=== PATIENT | male | born 2005 | race Caucasian/White ===

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

== ENCOUNTER 2024-12-11 14:00 | Emergency (ER) | payer OTHER, SELFPAY ==
--- NOTE | 2024-12-11 14:03 | ED_ITS ---
HPI - URI/Sore Throat General Chief Complaint: Upper Respiratory Infection Stated Complaint: Fever/Sinus Time Seen by Provider: 12/11/24 14:03 Source: patient Mode of arrival: ambulatory Limitations: no limitations History of Present Illness HPI Narrative: Patient is a 19-year-old male who presents with fever, sinus congestion and cough that started yesterday. Patient has not taken anything for symptoms. Reports high his fever of 102. Also reports fatigue and mild body aches. Reports problem manager had the flu. Denies any nausea, vomiting, diarrhea. Related Data Home Medications ?Medication ?Instructions ?Recorded ?Confirmed ?Last Taken ?Type No Home Medications 12/11/24 12/11/24 Unknown History Allergies Allergy/AdvReac Type Severity Reaction Status Date / Time No Known Allergies Allergy Verified 12/11/24 14:01 Review of Systems Review of Systems: All systems reviewed & are unremarkable except as noted in HPI and below Constitutional: Constitutional: Denies chills, Reports fatigue, Reports fever(s), Denies headache(s), Denies malaise and Denies weakness Eyes: Eyes: Denies blurry vision, Denies itchy eyes and Denies loss of vision ENT: Denies otalgia, Denies headache(s), Reports nasal congestion, Denies sinus pain and Denies sore throat Cardiovascular: Cardiovascular: Denies chest pain, Denies irregular heart rhythm and Denies dyspnea Respiratory: Respiratory: Reports cough and Denies dyspnea Gastrointestinal: Gastrointestinal: Denies abdominal pain, Denies diarrhea, Denies nausea and Denies vomiting Musculoskeletal: Musculoskeletal: Denies back pain, Reports myalgias and Denies arthralgias Integumentary/Breasts: Skin/Breast: Denies pruritus and Denies rash Neurologic: Denies headache(s), Denies loss of vision and Denies weakness Psychiatric: Psychiatric: Reports no additional psychiatric complaints Endocrine: Endocrine: Denies fatigue Allergic/Immunologic: Allergic/Immunologic: Denies itchy eyes PMFSH Past Medical History Medical History Healthy adult male Surgical History Surgical History No history of previous surgery Comments At time of signature, agree with nursing past medical, surgical, social and family history. There is no relevant family history pertinent to the presenting complaint. Exam Const: General: cooperative, healthy appearing, comfortable, no acute distress and well nourished Nutritional Appearance: well nourished Orientatio n/consciousness: patient oriented x3 Limitations: no limitations HENMT: Head: normal to inspection, normocephalic and atraumatic Ears: hearing grossly normal bilaterally, external ears normal, TM's normal bilaterally, EAC's normal and no periauricular adenopathy Face/Nose/Sinus: Normal external nose present, Abnormal mucous membranes and turbinates present erythematous bilateral and diffuse, normal facial exam, sinuses nontender and face symmetric Face and sinus: normal facial exam, sinuses nontender and face symmetric Mouth: Yes Normal oral and palatal mucosa present, Yes lip normal, Yes tongue normal, Yes Normal salivary glands and ducts present, Yes oropharynx normal and Yes moist mucous membranes Teeth and gingiva: dentition normal Throat: posterior oropharynx normal, tonsils normal and uvula midline Eyes: General: appearance normal, both eyes and all related structures Alignment and Position: alignment normal and position normal Periorbital: periorbital findings normal Eyelids: eyelids normal Pupils: Equal, round and reactive pupils present Neck: Neck: normal visual inspection, full ROM, no lymphadenopathy and supple Chest: Chest palpation & inspection: normal inspection of the chest and normal palpation of entire chest wall Resp: Effort & Inspection: normal respiratory effort and able to speak in complete sentences Auscultation: clear to auscultation bilaterally, no crackles, no rales, no rhonchi and no wheezes Cardio: Rate: regular rate Rhythm: regular rhythm Heart sounds: S1 normal heart sound present and S2 normal heart sound present GI: Inspection: normal to inspection Skin: General skin exam: normal color and no rashes or lesions noted Neuro: General: patient oriented x3 and moves all extremities Cranial nerves: Yes Equal, round and reactive pupils present Speech: normal speech Gait exam (Neuro): Normal gait present Extrem: General: normal to inspection, full ROM and no edema Psych: Appearance: grossly normal and well kempt Mental Status: mental status grossly normal Speech and movement: Normal speech and movement present Affect: normal affect Attitude: cooperative Thought process: Normal thought process present Course Course Emergency Course: Discharge instructions reviewed with patient, as well as provided in writing per nursing staff. The instructions also include specific and strict return/GO TO THE ER as well as f/u information. All questions have been answered, and the patient deny any further questions with discharge and discharge plan. Portions of this record may have been created with voice recognition software Level of Care: Express Care Visit Vital Signs Vital signs: Vital Signs Temperature 36.6 C 12/11/24 14:07 Pulse Rate 97 12/11/24 14:07 Respiratory Rate 14 12/11/24 14:07 Blood Pressure 133/84 12/11/24 14:07 Pulse Oximetry 100 12/11/24 14:07 Oxygen Delivery Room Air 12/11/24 14:07 Temperature 36.6 C 12/11/24 14:07 Pulse Rate 97 12/11/24 14:07 Respiratory Rate 14 12/11/24 14:07 Blood Pressure 133/84 12/11/24 14:07 Pulse Oximetry 100 12/11/24 14:07 Oxygen Delivery Room Air 12/11/24 14:07 Reviewed MDM - URI/Sore Throat MDM Narrative Medical decision making narrative: Pt well hydrated appearing, in no respiratory distress, hemodynamically stable. Recommend supportive care. The patient is stable at time of discharge the clinical impression was discussed and the patient was given the opportunity to ask questions, which were addressed as completely as possible given the information available at present. Anticipatory guidance and return to care precautions were discussed and the importance of primary care follow-up was stressed and encouraged. The patient voiced understanding of the plan, indications to return, and the need for follow-up. Differential diagnosis considered: Wiggins virus, strep pharyngitis, allergic rhinitis, upper respiratory tract infection, sinusitis, rhinosinusitis, nasopharyngitis. viral pharyngitis, otitis media, otitis externa, otitis effusion, foreign body, cerumen impaction, viral syndrome, and influenza.? Exam findings show no acute concerns or changes; patient is non-toxic appearing and is in no distress.? Patient is appropriate for outpatient treatment and follow- up.? Medical Records Attestation: I reviewed the patient's medical records. Lab Data Attestation: I reviewed the patient's lab results. Labs: Lab Results 12/11/24 Range/Units 14:41 POC Influenza A Ag Positive (Negative) POC Influenza B Ag Negative (Negative) POC SARS CoV-2 Ag Negative (Negative) Discharge Plan Discharge Clinical Impression: Influenza Patient Disposition: Home, Self-Care Condition: Stable Instructions: Influenza (ED) Additional Instructions: Were positive for influenza A. Your Covid is negative Your symptoms are due to a viral illness, which is not treated with antibiotics. Viral symptoms can be present for up to a few weeks. -For fever/pain, you may take: Tylenol 650-1000mg by mouth every 4-6 hours. Do not exceed 4000mg in 24 hours. Advil (Ibuprofen) 600 mg by mouth every 6 hours. Do not exceed 2400mg in 24 hours. 8 AM: Tylenol 11 AM: Ibuprofen 2 PM: Tylenol 5 PM: Ibuprofen 8 PM: Tylenol 11 PM: Ibuprofen 2 AM: Tylenol 5 AM: Ibuprofen -Antihistamine medication such as Benadryl/Zyrtec at night and Claritin/Nikkie during the day can help improve symptoms. -Use Flonase twice a day for 5 days then daily to help reduce the inflammation and dry up your sinuses. -You can also use Sudafed behind the pharmacy counter(12 or 24 hour). Be sure to drink plenty of water with these medications at least 8 ounces with every dose and it is important to drink 8 to 10 glasses of water per day. Water is a natural decongestant -Eat and drink things that are easy to swallow, like tea or soup, or popsicles. -Oral rinses such as: Salt water gargles and/or may use topical anesthetic (eg. Chloraseptic spray) or lozenges to relieve dryness or throat pain). -Frequent hand washing or hand coin machine servicer repairer is one of the best ways to prevent spread of infection. -Using a vaporizer or humidifier at night will also help thin secretions and help with coughing up phlegm. -Follow up with primary care provider in 3-5 days if condition is not improving - For new or worsening symptoms go directly to the nearest ER Patient Language: [place] Prescriptions: New benzonatate 100 mg capsule 100 mg PO BID PRN (Reason: cough) Qty: 14 0RF fluticasone propionate [Flonase Allergy Relief] 50 mcg/actuation spray,suspension 1 spray intranasal DAILY Qty: 16 0RF Rx Instructions: administer into each nostril No Action No Home Medications Follow-up/Referrals: Palak James MD [Primary Care Provider] - Stand Alone Forms: Work/School Release IP Time of Disposition: 14:42
[2024-12-11 14:07] VITALS: BP 133/84; PULSE 97; RESP 14; TEMP 36.6; O2SAT 100
[2024-12-11 14:43] LABS: EDCOVIDSCREEN Negative (Negative); EDINFLUASCREEN Positive (Negative); EDINFLUBSCREEN Negative (Negative)
== END 2024-12-11 14:45 | disposition home or self-care (01) ==
PROVIDERS: Emergency Provider Nurse Practitioner Family; PCP Family Medicine
DX: J10.1 Influenza due to other identified influenza virus with other respiratory manifestations (principal); Z20.822 Contact with and (suspected) exposure to COVID-19
CPT/HCPCS: 87426; 87804; 99213; G0463

== ENCOUNTER → 2024-12-18 12:26 | Emergency (ER) | payer OTHER, SELFPAY | END | disposition left against medical advice (07) | DX: Z53.21 Procedure and treatment not carried out due to patient leaving prior to being seen by health care provider (principal) | CPT/HCPCS: 99199 ==

== ENCOUNTER 2024-12-18 12:53 | Emergency (ER) | payer OTHER, SELFPAY ==
[2024-12-18 13:01] VITALS: BP 119/79; PULSE 74; RESP 16; TEMP 36.2; O2SAT 99
--- NOTE | 2024-12-18 13:24 | ED.GENADULT ---
HPI - General Adult General Chief complaint: Nausea/Vomiting/Diarrhea Stated complaint: throwing up,diarrhea work note History of Present Illness HPI narrative: Vimal Garcia is a 19-year-old male who presents with reports of having a flu last week and states that today he has had nausea vomited and diarrhea. He states that he has the same cold that his sister did and states she had nausea vomiting diarrhea that lasted a couple days ago he believes that that is all this is. He states that he does need a work note for today because he stayed home. He reports that he has been keeping liquids down since he vomited and only feels a little nauseous at this time. Related Data Allergies Allergy/AdvReac Type Severity Reaction Status Date / Time No Known Allergies Allergy Verified 12/11/24 14:01 Review of Systems Review of Systems: All systems reviewed & are unremarkable except as noted in HPI and below PMFSH Past Medical History Medical History Healthy adult male Surgical History Surgical History No history of previous surgery Exam Narrative: GENERAL: Well-appearing, well-nourished, and in no acute distress. HEAD: Normocephalic, atraumatic. EYES: PERRLA and EOMI. ENT: Nares clear, no rhinorrhea or epistaxis. Mucous membranes moist. Oropharynx without tonsillar hypertrophy exudate or other lesions. Bilateral TMs pearly farmer nonbulging NECK: Supple. No adenopathy or masses. No carotid bruits or JVD CHEST: Clear to auscultation. No respiratory distress. No wheezes rales or rhonchi HEART: Regular rate and rhythm. No murmur heard. Normal peripheral pulses. ABDOMEN: Soft, nontender, nondistended, normal active bowel sounds. EXTREMITIES: Normal range of motion. No edema. SKIN: Warm, dry, no rash. NEURO: No focal deficits. Alert and oriented x3. PSYCH: Normal mood and affect. Course Course Level of Care: Express Care Visit Vital Signs Vital signs: Vital Signs Temperature 36.2 C L 12/18/24 13:01 Pulse Rate 74 12/18/24 13:01 Respiratory Rate 16 12/18/24 13:01 Blood Pressure 119/79 12/18/24 13:01 Pulse Oximetry 99 12/18/24 13:01 Oxygen Delivery Autopap 12/18/24 13:01 Temperature 36.2 C L 12/18/24 13:01 Pulse Rate 74 12/18/24 13:01 Respiratory Rate 16 12/18/24 13:01 Blood Pressure 119/79 12/18/24 13:01 Pulse Oximetry 99 12/18/24 13:01 Oxygen Delivery Autopap 12/18/24 13:01 Medical Decision Making MDM Narrative Medical decision making narrative: 19 y/o with 1 -2 days of symptoms most suggestive of viral syndrome with nausea, vomiting and diarrhea. Lungs are clear bilaterally. His vitals are stable/ he has been keeping liquids down since he vomited His exam is normal / abdomen soft / no pain with palpation Patient is treated with ondansetron here On reevaluation, patient feels better and tolerating oral intake. Patient is comfortable going home and discharged home in stable condition with expectant management and return precautions. Procedures: Pulse oximetry interpretation - not hypoxic. Review of medical records. DISPOSITION: Discharged home in stable condition. IMPRESSION: Acute nausea, vomiting and diarrhea. Acute viral syndrome. Medical Records Medical records reviewed: Yes I reviewed the external patient's medical records. Vital Signs Vital Signs: Vital Signs Temperature 36.2 C L 12/18/24 13:01 Pulse Rate 74 12/18/24 13:01 Respiratory Rate 16 12/18/24 13:01 Blood Pressure 119/79 12/18/24 13:01 Pulse Oximetry 99 12/18/24 13:01 Oxygen Delivery Autopap 12/18/24 13:01 Temperature 36.2 C L 12/18/24 13:01 Pulse Rate 74 12/18/24 13:01 Respiratory Rate 16 12/18/24 13:01 Blood Pressure 119/79 12/18/24 13:01 Pulse Oximetry 99 12/18/24 13:01 Oxygen Delivery Autopap 12/18/24 13:01 Vitals reviewed by me Discharge Plan Discharge Clinical Impression: Mild nausea and vomiting Diarrhea Qualifiers: Diarrhea type: unspecified type Qualified Code(s): R19.7 - Diarrhea, unspecified Patient Disposition: Home, Self-Care Condition: Stable Instructions: Antibiotic Form Additional Instructions: Continue to take the Zofran as discussed for nausea Stick to clear liquids for the next 24-48 hours then advance to a bland diet bananas/ rice / applesauce / toast Follow up wtih your PCP in 1 week If you develop any worsening symptoms such as unable to keep liquids down/ abdominal pain/ fever then proceed to the ER Patient Language: [place] Prescriptions: New ondansetron 4 mg tablet,disintegrating 4 mg PO Q8H PRN (Reason: nausea and vomiting) Qty: 12 0RF No Action benzonatate 100 mg capsule 100 mg PO BID PRN (Reason: cough) Qty: 14 0RF fluticasone propionate [Flonase Allergy Relief] 50 mcg/actuation spray,suspension 1 spray intranasal DAILY Qty: 16 0RF Rx Instructions: administer into each nostril Follow-up/Referrals: PHYSICIAN,FILLING STATION EQUIPMENT MECHANIC [Primary Care Provider] - Stand Alone Forms: Work/School Release IP Time of Disposition: 13:35
[2024-12-18] MEDS: ONDANSETRON HCL ODT 4 MG TABLET PO (13:42)
== END 2024-12-18 13:45 | disposition home or self-care (01) ==
PROVIDERS: Emergency Provider Nurse Practitioner Family
DX: R11.2 Nausea with vomiting, unspecified (principal); R19.7 Diarrhea, unspecified
CPT/HCPCS: 99213; A9270; G0463

== ENCOUNTER 2025-03-09 12:54 | Emergency (ER) | payer OTHER, SELFPAY ==
[2025-03-09 13:04] VITALS: BP 116/78; PULSE 79; RESP 18; TEMP 36.5; O2SAT 99
[2025-03-09 13:25] VITALS: BP 122/76; BP 124/78; PULSE 74
--- NOTE | 2025-03-09 14:30 | ED.NAVMDI ---
HPI - Nausea/Vomiting/Diarrhea General Chief complaint: Nausea/Vomiting/Diarrhea Stated complaint: Vomiting/Stomach Pain/Migraine Time Seen by Provider: 03/09/25 13:40 Source: patient and RN notes reviewed Mode of arrival: ambulatory Limitations: no limitations History of Present Illness HPI Narrative: 19-year-old male presents [facility] complaining of nausea, vomiting, headache since this morning. Patient stated he developed nausea followed by intense vomiting. Patient has not vomited since this morning. Patient reports abdominal cramping and brown watery diarrhea. Patient denies any fevers, body aches, chills, abdominal pain, bloody stools, blood in vomit. He states he has been able to drink fluids since he is vomited this morning. Patient reports still feeling nauseous. Patient has not taken anything [id number]. Patient states he developed a headache after constant vomiting. Related Data Allergies Allergy/AdvReac Type Severity Reaction Status Date / Time No Known Allergies Allergy Verified 12/21/24 13:39 Review of Systems Review of Systems: CONSTITUTIONAL: Denies fever, chills, body aches, or sweats. EYES: Denies visual changes, redness, or discharge. ENT: Denies rhinorrhea, congestion, sore throat, or otalgia. CARDIOVASCULAR: Denies chest pain, palpitations, or edema. RESPIRATORY: Denies cough or dyspnea. GASTROINTESTINAL: Denies abdominal pain, bloody stools, hematochezia, mucus in stool. Positive for nausea, vomiting, diarrhea GENITOURINARY: Denies dysuria or hematuria. SKIN: Denies rash or itching. MUSCULOSKELETAL: Denies back pain, joint pain, or myalgia. NEUROLOGIC: Positive for headache, negative for numbness, or weakness. PSYCHIATRIC: Denies anxiety or depression. All other systems reviewed are negative, except as documented in HPI. [facility] Past Medical History Medical History Healthy adult male History of bipolar disorder Surgical History Surgical History No history of previous surgery Social History Social History Substance use type: marijuana Comments At the time of my signature, I reviewed and agree with the nursing past medical, surgical, social, and family history. There is no relevant family history pertinent to the patient complaint. Exam Narrative: GENERAL: This is a well-nourished, well-developed adult, in no apparent distress. They are non ill-appearing, nontoxic appearing. HEAD: normocephalic, atraumatic. EYES: Sclera clear/white. Conjunctiva normal. Vision is grossly intact. Extraocular movements intact EARS: External ears normal. Hearing grossly intact. NOSE: External nose tereza THROAT: Mucous membranes moist, NECK: Neck supple, non-tender without lymphadenopathy, masses or thyromegaly. CARDIOVASCULAR: Regular rate and rhythm without murmurs, gallops, or rubs. RESPIRATORY: Clear to auscultation. Breath sounds equal bilaterally. No wheezes, rales, or rhonchi. GASTROINTESTINAL: Abdomen soft, flat, non-tender, nondistended. Bowel sounds are active. No hepato-splenomegaly, or palpable masses. No guarding. No rebound tenderness, negative obturator sign SKIN: warm, Dry, intact with no suspicious lesions or rash, good texture and turgor. NEURO: awake, alert, and oriented to person, place and time. There were no obvious focal neurologic abnormalities. EXTREMITIES: No joint tenderness, effusion, or edema noted. BACK: Nontender without deformity. Course Course Emergency Course: Portions of this record may have been created with voice recognition software Level of Care: Express Care Visit Vital Signs Vital signs: Vital Signs Temperature 97.7 F 03/09/25 13:04 Pulse Rate 79 03/09/25 13:04 Respiratory Rate 18 03/09/25 13:04 Blood Pressure 116/78 03/09/25 13:04 Pulse Oximetry 99 03/09/25 13:04 Temperature 97.7 F 03/09/25 13:04 Pulse Rate 74 03/09/25 13:25 Respiratory Rate 18 03/09/25 13:04 Blood Pressure 124/78 03/09/25 13:25 Pulse Oximetry 99 03/09/25 13:04 Reviewed MDM - Nausea/Vomiting/Diarrhea MDM Narrative Medical decision making narrative: Patient's symptoms consistent with a viral gastroenteritis. Orthostatic vital signs are negative for evidence of dehydration or hypotension. Mucous membranes are moist. Will prescribe Zofran as needed for nausea and vomiting. Discussed physical exam findings. Advised supportive measures and signs/symptoms to go to the ER. Pt is appropriate for outpt treatment and f/u. Differential Diagnosis Differential diagnosis: Likely food poisoning, gastroenteritis and dehydration Critical Care Time Critical Care Time Critical Care Time: No Discharge Plan Discharge Clinical Impression: Gastroenteritis Patient Disposition: Home Condition: Stable Instructions: Gastroenteritis (ED) Additional Instructions: It Is likely have a viral gastroenteritis. This condition is normally self-limiting and resolve within 48-72 hours. Diarrhea may persist afterwards. Please take Zofran as needed for nausea and vomiting. Drink plenty of fluids and electrolyte supplementation such as Pedialyte. If the diarrhea becomes uncontrollable you may take Pepto-Bismol as needed. Pepto-Bismol may make your stool black or green. You may take Tylenol or ibuprofen as needed for pain or headaches. If you develop any fevers, abdominal pain, uncontrollable nausea vomiting, concerns for dehydration, bloody stools, coffee-ground vomit, or any other concerns please go to the ER immediately. Patient Language: Yi Prescriptions: New ondansetron 4 mg tablet,disintegrating 4 mg PO Q8H PRN (Reason: nausea and vomiting) Qty: 12 0RF No Action benzonatate 100 mg capsule 100 mg PO BID PRN (Reason: cough) Qty: 14 0RF fluticasone propionate [Flonase Allergy Relief] 50 mcg/actuation spray,suspension 1 spray intranasal DAILY Qty: 16 0RF Rx Instructions: administer into each nostril ondansetron 4 mg tablet,disintegrating 4 mg PO Q8H PRN (Reason: nausea and vomiting) Qty: 12 0RF doxycycline hyclate 100 mg tablet 100 mg PO BID 7 Days Qty: 14 0RF Follow-up/Referrals: PHYSICIAN,OCCUPATIONAL HEALTH PROFESSIONAL [Primary Care Provider] - Stand Alone Forms: Work/School Release IP Time of Disposition: 13:51
== END 2025-03-09 13:53 | disposition home or self-care (01) ==
DX: K52.9 Noninfective gastroenteritis and colitis, unspecified (principal); F12.90 Cannabis use, unspecified, uncomplicated
CPT/HCPCS: 99213; G0463